=== PATIENT | male | born 1940 | race Caucasian/White ===

== ENCOUNTER 2022-10-29 04:49 | Emergency (ER) | payer OTHER ==
[~2022-10-29] VITALS: Ht 180.3 cm; Wt 86.2 kg
[2022-10-29 05:03] VITALS: BP 134/92
--- NOTE | 2022-10-29 05:05 | NUR ---
bibasmita from home, c/o lower back pain all night 10/10 ps. Pt ambulatory with steady gait,
[2022-10-29] MEDS ORDERED: OXYC10TA59 PO (05:23)
[2022-10-29] MEDS ORDERED: LIDO30AD10 TP (05:23)
[2022-10-29] MEDS ORDERED: OXYC5CAP18 PO (05:25)
[2022-10-29] MEDS ORDERED: CYCLOBENZAPRINE 10 MG TABLET ONE (05:25)
[2022-10-29] MEDS ORDERED: KETOROLAC TROMETHAMINE 15 MG/ML VIAL ONE (05:25)
[2022-10-29] MEDS ORDERED: CYCL5TAB PO (05:25)
[2022-10-29] MEDS ORDERED: KETOROLAC TROMETHAMINE INJ 60 MG/2 ML VIAL IM ONE (05:30)
[2022-10-29] MEDS ORDERED: CYCLOBENZAPRINE 10 MG TABLET PO ONE (05:30)
--- NOTE | 2022-10-29 06:08 | NUR ---
Patient discharged to home in stable condition. Written and verbal after care instructions given. Patient verbalizes understanding of instruction.
== END 2022-10-29 06:11 | disposition home or self-care (01) ==
LOC: ER 04:52
DX: S33.5XXA Sprain of ligaments of lumbar spine, initial encounter (principal); E78.00 Pure hypercholesterolemia, unspecified; Z79.899 Other long term (current) drug therapy; X50.0XXA Overexertion from strenuous movement or load, initial encounter; Y93.89 Activity, other specified; Y92.89 Other specified places as the place of occurrence of the external cause; Y99.8 Other external cause status
CPT/HCPCS: 99283; 96372; J1885

== ENCOUNTER 2022-11-02 04:52 | Emergency (ER) | payer OTHER ==
[~2022-11-02] VITALS: Ht 180.3 cm; Wt 86.2 kg
[~2022-11-02 04:52] MED LIST: CYCL5TAB PO; LIDO30AD10 TP; OXYC5CAP18 PO
[2022-11-02 06:21] VITALS: BP 123/89
--- NOTE | 2022-11-02 06:25 | NUR ---
JUAN LUIS FROM HOME WITH CC OF LEFT HIP PAIN RADIATING TO LEFT LEG X1 WEEK, SEEN IN ER LAST 10/29/22 FOR SAME COMPLAINT. PATIENT IS AAOX4, AMBULATORY, PAIN SCALE OF 6/10.
[2022-11-02] MEDS ORDERED: OXYC5CAP18 PO (06:33)
--- NOTE | 2022-11-02 06:38 | NUR ---
Patient discharged to home in stable condition. Written and verbal after care instructions given. Patient verbalizes understanding of instruction.
== END 2022-11-02 06:40 | disposition home or self-care (01) ==
LOC: ER 04:56
DX: S33.5XXA Sprain of ligaments of lumbar spine, initial encounter (principal); E78.00 Pure hypercholesterolemia, unspecified; Z79.899 Other long term (current) drug therapy; X58.XXXA Exposure to other specified factors, initial encounter; Y93.89 Activity, other specified; Y92.89 Other specified places as the place of occurrence of the external cause; Y99.8 Other external cause status